=== PATIENT | female | born 1980 | race American Indian/Alaskan Native ===

== ENCOUNTER 2018-01-20 09:51 | Inpatient (IN) | payer MEDICAID ==
--- NOTE | 2018-01-19 12:44 | History and Physical Report ---
History of Present Illness Date of examination: 01/15/18 Date of admission: 01/20/2018 Chief complaint: here for c/s and tl History of present illness: Pt presents for repeat c/s with btl. All risk, benefits, and alternatives were d /w pt and all questions were addressed and answered. Consents were signed and placed on the chart. Menstrual History Regularity: irregular LMP: 03/31/2017 LMP reliability: unknown LMP character: normal test type: urine test Date: 06/26/2017 BC at conception: none Planned ? no EDC Calculations LMP: 01/05/2018 EDC Confirmation: 01/22/2018 Gestational Age: 10 weeks Past History : 5 Term Births: 3 Living Children: 3 Prev : 3 Ectopics: 1 # 1 Delivery date: 1998 Weeks Gestation: 41 Delivery type: Anesthesia type: epidural Delivery location: [place] Infant Sex: Male weight: 7-7 Comments: distress # 2 Delivery date: 2011 Weeks Gestation: 40 Delivery type: Anesthesia type: epidural [facility] Infant Sex: Female weight: 6-6 Comments: no complications # 3 Delivery date: 2013 Weeks Gestation: 40 Delivery type: Anesthesia type: epidural Delivery location: [place] Sex: Female weight: 7-4 Comments: no complications Past Medical History: Negative Past Medical History Past Surgical History: Past Medical History Surgery (Non-gynecological assistant): Abnormal PAP: negative [place] Exposure: negative Infertility: negative Uterine Anomaly: negative Uterine Surgery (not C/S): negative Other Gynecologic Problems: negative Medical History Comments: negative Family Hx: DM Pancreatic CA LUng CA Dementia MS Cervical CA Social Hx: no e/t/d Infection History Varicella/Chicken Pox Status: Previous Disease Genetic History ADVANCED MATERNAL AGE Congenital Heart Defect: Mom: no Dad: no Sal Disease: Mom: no Dad: no Thalassemia Mom: no Dad: no Neural Tube Defect Mom: no Dad: no Down's Syndrome Mom: no Dad: no Saleem-Sachs Mom: no Dad: no Sickle Cell Disease/Trait Mom: no Dad: no Hemophilia Mom: no Dad: no Muscular Dystrophy Mom: no Dad: no Cystic Fibrosis Mom: no Dad: no Maury Chorea Mom: no Dad: no Mental Retardation Mom: no Dad: no Fragile X Mom: no Dad: no Other Genetic/Chromosomal Disorder Mom: no Dad: no Child w/other defect Mom: no Dad: no Comments/Counseling: mother of pt with MS Enviromental Exposures Xray Exposure: no Medication, drug, or alcohol use since LMP: no Chemical/Other Exposure: no Exposure to Cat Liter: no Hx of Parvovirus (Fifth Disease): no Active Medications (reviewed today): PNV () Current Allergies (reviewed today): * PCN (Critical) Past History Past Medical History: no pertinent history Past Surgical History: section (x3) [employer]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 Negative: distention, tenderness, guarding Genitourinary (Female): Positive: other (deferred) Extremities: Positive: normal. Negative: tenderness, edema Deep Tendon Reflex Grade: Normal +2 - Obstetrical FHR: auscultation normal Results All other labs normal. Assessment and Plan - Patient Problems (1) 39 weeks gestation of Status: Acute (2) Admission for sterilization Status: Acute (3) Previous section complicating , antepartum condition or complication Status: Acute Plan to address problem: -to OR for repeat c/s with btl -consents signed and placed on the chart. (4) AMA (advanced maternal age) multigravida 35+ Status: Acute
[~2018-01-20 09:51] MED LIST: BICITRA PO ONE; CLEOCIN 600 MG/50 mL 600 MG/50 ML BAG IV NR; GARAMYCIN 100 MG in NACL 0.9% 100 ML IV SCH; LACTATED RINGERS 1,000 ML IV SCH; PEPCID IV ONE; PITOCin/NS 20 UNIT/1000ML DRIP 20 UNITS/1,000 ML BAG IV SCH; REGLAN IV ONE
[2018-01-20] MEDS ORDERED: LACTATED RINGERS 2,000 ML ONE (09:59)
--- NOTE | 2018-01-20 10:23 | Anesthesia Day of Surgery ---
Anesthesia Day of Surgery - Day of Surgery Patient Examined: Yes Patient H&P Reviewed: Yes Patient is NPO: Yes
--- NOTE | 2018-01-20 10:23 | Anesthesia Consultation ---
Anesthesia Consult and Med Hx Date of service: 01/20/18 - Airway Anesthetic Teeth Evaluation: Good ROM Head & Neck: Adequate Mental/Hyoid Distance: Adequate Mallampati Class: Class II Intubation Access Assessment: Probably Good - Pre-Operative Health Status ASA Pre-Surgery Classification: ASA2 Proposed Anesthetic Plan: Epidural, Spinal - Pulmonary Hx Smoking: Yes (1/2 day x 20 years) Hx Sleep Apnea: No (snoring)
[2018-01-20] MEDS ORDERED: NARCAN 0.4 MG/1 ML IV PRN (10:36)
[2018-01-20] MEDS ORDERED: BENADRYL IV PRN (10:36)
[2018-01-20] MEDS ORDERED: PHENERGAN PO PRN (10:36)
[2018-01-20] MEDS ORDERED: PHENERGAN PR PRN (10:36)
[2018-01-20] MEDS ORDERED: ZOFRAN IV PRN ×2 (10:36→16:26)
[2018-01-20] MEDS ORDERED: DILAUDID IV PRN (10:36)
[2018-01-20] MEDS ORDERED: TORADOL IV PRN (10:37)
[2018-01-20] MEDS ORDERED: SODIUM CHLORIDE FLUSH SYRINGE 10 ML IV NR ×2 (11:00→15:00)
[2018-01-20 11:12] LABS: Basophils % (Auto) 0.6 % (0.0-1.8); Eosinophils % (Auto) 0.5 % (0.0-4.3); Hematocrit 35.6 % (30.3-42.9); Hemoglobin 12.1 gm/dl (10.1-14.3); Lymphocytes # (Auto) 1.3 K/mm3 (1.2-5.4); Lymphocytes % (Auto) 20.6 % (13.4-35.0); Mean Corpuscular HGB Conc 34 % (30-34); Mean Corpuscular Hemoglobin 33 pg (28-32); Mean Corpuscular Volume 97 fl (79-97); Monocytes # (Auto) 0.5 K/mm3 (0.0-0.8); Monocytes % (Auto) 7.7 % (0.0-7.3); Platelet Count 245 K/mm3 (140-440); Red Blood Count 3.68 M/mm3 (3.65-5.03); Red Cell Distribution Width 14.5 % (13.2-15.2)
[2018-01-20] MEDS ORDERED: BICITRA ONE (11:26)
[2018-01-20] MEDS ORDERED: PEPCID IV ONE (11:27)
[2018-01-20] MEDS ORDERED: REGLAN ONE (11:27)
[2018-01-20] MEDS ORDERED: WATER FOR IRRIG STERILE IR ONE (12:20)
[2018-01-20] MEDS ORDERED: NACL 0.9% IR ONE (12:20)
[2018-01-20] MEDS ORDERED: NEO SYNEPHRINE/NS Syringe(OR USE) IV ONE (12:33)
[2018-01-20] MEDS ORDERED: METHERGINE IM ONE (12:42)
[2018-01-20] MEDS ORDERED: LACTATED RINGERS 1,000 ML ONE (12:44)
[2018-01-20] MEDS ORDERED: ZOFRAN ONE (13:20)
[2018-01-20] MEDS ORDERED: MORPHINE ONE (13:24)
--- NOTE | 2018-01-20 14:14 | Operative Report ---
Operative Report Operative Report: Date of procedure: 01/20/2018 Pre-operative diagnosis: 39 weeks gestation Previous section 3 Desires permanent sterilization Advanced maternal age Post-operative diagnosis: Same Procedure name(s): Repeat low transverse section via Pfannenstiel skin incision Left modified Bagley tubal ligation Right tubal ligation via placement of Filshie clips 2 Surgeon: Dr. Kohler Population Health Manager: Ms. Julia Corea, [employer] Anesthesia: Combined spinal epidural EBL: 1 L Urine output: 100 mL Fluids: 1500 mL Findings: Liveborn female weight 6 lbs. 14 oz. Apgars of 7 and 9 at one and 5 minutes Evidence of right partial salpingectomy with the remaining of the fallopian tube appearing intact and in place however there was just evidence via narrowing of the proximal portion of the fallopian tube. Grossly normal fallopian tubes and ovaries bilaterally Nuchal cord 2 Indications: Patient presents for repeat section with tubal ligation. All risk benefits and alternatives were discussed with the patient. Consents were signed and placed on the chart. Procedure: Patient was taking to the operating room. Patient was then prepped and draped in sterile fashion after anesthesia was found to be adequate. A low transverse skin incision was made with the scalpel through previous incisional scar and carried down to the underlying layer of fascia with the Bovie. The fascia was then incised in the midline and this incision was extended bilaterally with the Bovie. The superior aspect of the fascia was grasped with Jose clamps tented upward and dissected off of the anterior rectus muscles with the scalpel. In similar fashion the inferior aspect of the fascia was grasped with Jose clamps tented upward and dissected off of the anterior rectus muscles. The rectus muscles were then bluntly divided in the midline. The peritoneum was identified and entered into sharply. The Guillermo retractor was placed The bladder blade was placed. A lower transverse uterine incision was made with the scalpel and extended bilaterally with the bandage scissors. Artificial rupture of membranes was performed yielding clear amniotic fluid. The infant's head was then delivered atraumatically. The anterior shoulder and rest of infant delivered without difficulty. The umbilical cord was clamped x2. The cord was cut. The was then placed in sterile bassinet. The placenta was manually extracted in its entirety. The uterus was exteriorized and cleared of all clots and debris. The uterine incision was closed using 0 Vicryl in a running locking fashion. Several [id number] sutures were used along the incision line to secure excellent hemostasis. Tisseel was also placed along the incision to secure excellent hemostasis. Attention was then turned to the fallopian tubes. Filshie clips were placed on the right fallopian tube without difficulty. The left fallopian tube was grasp with [place] a knuckle of the tube was suture-ligated transected with excellent hemostasis noted. The suture ligated 2. The posterior cul-de-sac was copiously irrigated. The uterus was returned to the abdomen. Lysis retractor was removed from the abdomen The gutters were also irrigated. The anterior rectus muscles were reapproximated using 3-0 Vicryl. The anterior rectus fascia was reapproximated using 0 Vicryl in a running fashion. The subcuticular fat was reapproximated using 2-0 Vicryl in a running fashion. The skin was reapproximated with 4-0 Monocryl in a subcuticular stitch. The patient tolerated the procedure well. Sponge lap and needle counts were all correct x3. Patient was taken to the recovery room awake and in stable condition.
[2018-01-20] MEDS ORDERED: TUCKS PAD TP PRN (14:16)
[2018-01-20] MEDS ORDERED: MOTRIN PO PRN (14:16)
[2018-01-20] MEDS ORDERED: NORCO 5/325 PO PRN (14:16)
[2018-01-20] MEDS ORDERED: LANSINOH TP PRN (14:16)
[2018-01-20] MEDS ORDERED: D5LR 1,000 ML IV SCH (15:00)
[2018-01-20] MEDS ORDERED: PITOCin/NS 20 UNIT/1000ML DRIP 20,000 MILLIUNITS/1,000 ML BAG IV ONE (18:21)
[2018-01-20] MEDS: CLEOCIN 600 MG/50 mL 600 MG/50 ML BAG IV SCH (18:38)
[2018-01-21] MEDS: CLEOCIN 600 MG/50 mL 600 MG/50 ML BAG IV SCH (03:10)
[2018-01-21 03:34] LABS: Hematocrit 31.8 % (30.3-42.9); Hemoglobin 11.3 gm/dl (10.1-14.3)
--- NOTE | 2018-01-21 08:08 | Progress Note ---
Assessment and Plan Patient doing well, already out of bed and ambulating. Pain well controlled. c/ o itching, rx nubain ordered and RN aware. Tisha shin, H&H 11.3/31.8, VSSAF, incision D&I. continue postop pathway, plan for d/c home per patient request tomorrow if stable. - Patient Problems (1) delivery delivered Current Visit: Yes Status: Acute Subjective - Subjective Date of service: 01/21/18 Principal diagnosis: postop day #1 s/p repeat c/s Patient reports: appetite normal, voiding normally, pain well controlled, ambulating normally, no dizzy ambulation, no flatus, no nauseated [place]: doing well, nursing well Objective - Vital Signs Latest vital signs: Vital Signs Temp Pulse Resp BP BP Pulse Ox 01/21/18 04:55 98.2 F 84 20 124/73 98 01/21/18 01:46 98.2 F 91 H 20 103/70 99 01/20/18 21:03 98.3 F 87 20 115/77 98 01/20/18 16:32 98.1 F 107 H 20 127/65 95 01/20/18 14:57 97.8 F 86 16 129/81 100 01/20/18 14:38 75 16 108/60 100 01/20/18 14:20 76 17 94/58 100 01/20/18 14:05 76 19 103/52 100 01/20/18 13:50 79 16 107/54 100 01/20/18 13:45 82 18 98/51 100 01/20/18 13:40 81 17 106/50 100 01/20/18 13:32 98.1 F 87 16 105/50 100 01/20/18 11:48 79 98 01/20/18 11:43 88 98 01/20/18 10:44 80 98 01/20/18 10:39 88 99 01/20/18 10:34 92 H 98 01/20/18 10:29 92 H 98 01/20/18 10:26 89 107/67 01/20/18 10:24 86 98 01/20/18 10:21 98.2 F 89 18 107/67 98 Intake and Output 01/20/18 01/21/18 01/21/18 23:59 07:59 15:59 Intake Total 50 360 Output Total 500 1500 Balance -450 -1140 Intake: IV 50 CLEOCIN 600 MG/50 mL 600 50 mg In 50 ml @ 100 mls/hr IV Q8H [facility] Rx#:[id number] Oral 360 Output: Urine 500 1500 Indwelling Catheter 500 800 Void 700 Other: Total, Intake Amount 240 Total, Output Amount 500 700 # Voids Void 1 - Exam Breasts: Present: normal, Cardiovascular: Present: Regular rate Lungs: Present: Clear to auscultation, Normal air movement Abdomen: Present: normal appearance, soft Vulva: both: normal Uterus: Present: normal, firm, fundal height at umbilicus Extremities: Present: normal Incision: Present: normal, dry, intact - Labs Labs: Abnormal lab results 01/20/18 Range/Units 10:30 MCH 33 H (28-32) pg [place] % (Auto) 7.7 H (0.0-7.3) % Seg Neutrophils % 70.6 H (40.0-70.0) %
[2018-01-21] MEDS ORDERED: NUBAIN IV NR ×2 (08:30→15:08)
[2018-01-21] MEDS: FEOSOL PO SCH (09:13)
[2018-01-21] MEDS ORDERED: BOOSTRIX IM ONE (14:17)
--- NOTE | 2018-01-22 07:12 | Discharge Summary ---
Providers - Providers Date of Admission: 01/20/18 12:34 Date of discharge: 01/22/18 (pt desires d/c ) Attending physician: ЮЛИЯ RICARDO Primary care physician: ЮЛИЯ RICAROD Hospitalization Reason for admission: section Delivery: Procedure: bilateral tubal ligation, repeat low transverse Episiotomy: none Laceration: none Incision: normal, dry, intact Other procedures: none complications: none Discharge diagnosis: IUP at term delivered [place] baby: female Hospital course: uncomplicated section with tubal ligation Pt w/o complaint VSs FF below umb Lochia scant Incision D&I Asymptomatic anemia Doing well s/p c/s P: d/c today with instruction RTO 1 week postop care. Condition at discharge: Good Disposition: DC-01 TO HOME OR SELFCARE - Discharge Diagnoses (1) delivery delivered Status: Acute Comment: RTO 1 week postop care Plan - Discharge Medications Prescriptions: Ibuprofen 800 mg PO Q6HR #30 tablet Lidocain2.5%/Prilocai2.5% [Emla] 2 gm TP ONCE #1 tube oxyCODONE /ACETAMINOPHEN [Percocet 5/325] 1 tab PO Q4HR #30 tab - Provider Discharge Summary Activity: routine, no sex for 6 weeks, no heavy lifting 4 weeks, no strenuous exercise Diet: routine Instructions: routine Additional instructions: [] Smoking cessation referral if applicable(refer to patient education folder for contact #) [] Refer to [facility] Booklet Call your doctor immediately for: * Fever > 100.5 * Heavy vaginal bleeding ( >1 pad per hour) * Severe persistent headache * Shortness of breath * Reddened, hot, painful area to leg or breast * Drainage or odor from incision. * Keep incision clean and dry at all times and follow doctor's instructions regarding bathing/showering - Follow up plan Follow up: ЮИЛЯ RICARDO MD [Primary Care Provider] - 7 Days (Congratulations! Please call [phone] to schedule your postoperative appointment in 1 week. Take medications as prescribed. Call with concerns.)
[2018-01-22] MEDS: FEOSOL PO SCH (10:38)
[2018-01-22 15:02] VITALS: BP 126/81
== END 2018-01-22 15:30 | disposition home or self-care (01) | DRG 766 ==
LOC: APU 09:51 → UNDOADMIN 09:51 → APU 12:34 → OB 15:02
PROVIDERS: ADMIT Obstetrics & Gynecology; ATTEND Obstetrics & Gynecology
PROC: 10D00Z1 Extraction of Products of Conception, Low, Open Approach (ICD-10-PCS; principal; 2018-01-20)
PROC: 0UL50CZ Occlusion of Right Fallopian Tube with Extraluminal Device, Open Approach (ICD-10-PCS; 2018-01-20)
PROC: 0UB60ZZ Excision of Left Fallopian Tube, Open Approach (ICD-10-PCS; 2018-01-20)
DX: O34.211 Maternal care for low transverse scar from previous cesarean delivery (principal); O69.81X0 Labor and delivery complicated by cord around neck, without compression, not applicable or unspecified; Z37.0 Single live birth; Z88.0 Allergy status to penicillin; Z30.2 Encounter for sterilization; Z3A.39 39 weeks gestation of pregnancy; Z83.3 Family history of diabetes mellitus; Z80.1 Family history of malignant neoplasm of trachea, bronchus and lung; Z80.8 Family history of malignant neoplasm of other organs or systems; Z82.0 Family history of epilepsy and other diseases of the nervous system
CPT/HCPCS: 36415; 85014; 85018; 85025; 86850; 86900; 86901; 88305; 99211; C9250; G0463; J1200; J1580; J2210; J2270; J2300; J2370; J2405; J2590; J2765; J7120; J7121